=== PATIENT | female | born 1980 | race Caucasian/White ===

== ENCOUNTER 2016-07-15 08:53 | Emergency (ER) | payer BC ==
[~2016-07-15] VITALS: Ht 175.3 cm; Wt 72.1 kg
[~2016-07-15 08:53] MED LIST: Motrin PO; Percocet 5/325,Endoc PO; Zoloft PO
[2016-07-15] MEDS ORDERED: FIORICET WI1 CAPSULE PO (11:25)
[2016-07-15 11:47] VITALS: BP 97/57
== END 2016-07-15 11:48 | disposition home or self-care (01) ==
LOC: EME 08:53
DX: G43.909 Migraine, unspecified, not intractable, without status migrainosus (principal); Z88.2 Allergy status to sulfonamides; Z88.0 Allergy status to penicillin; Z88.6 Allergy status to analgesic agent
CPT/HCPCS: 99281; 99284; J1885; J2765; J7030

== ENCOUNTER 2017-01-20 22:37 | Inpatient (IN) | payer BC ==
[~2017-01-20] VITALS: Ht 175.3 cm; Wt 73.5 kg
[~2017-01-20 22:37] MED LIST changes: +FIORICET WI1 CAPSULE PO
[2017-01-20 23:21] LABS: ADD MIUA? NO; BILIRUBIN NEGATIVE; BLOOD NEGATIVE; COLOR STRAW ((YELLOW)); GLUCOSE (STRIP) NEGATIVE; KETONES NEGATIVE; LEUKOCYTES NEGATIVE; NITRITE NEGATIVE; PROTEIN (STRIP) NEGATIVE; SPECIFIC GRAVITY 1.009 (1.000-1.030); UROBILINOGEN 0.2 MG/DL (0.2-1.0)
[2017-01-20 23:43] LABS: EOSINOPHIL (%) 0.4 % (0-5); EOSINOPHIL COUNT 0.1 K/uL (0-0.3); IMMATURE GRANULOCYTE (%) 0.6 % (0.0-0.7); IMMATURE GRANULOCYTE COUNT 0.1 K/uL; INSTRUMENT ABS NEUTROPHIL CT 11.6 K/uL; LYMPHOCYTE COUNT 3.4 K/uL (1.0-2.8); MCH 28.3 PG (29.0-34.0); MCHC 32.5 G/DL (30.0-36.0); MCV 87.2 FL (83-99); MEAN PLAT.VOLUME 10.8 uM^3 (9.5-12.4); MONOCYTE (%) 6.8 % (3-12); MONOCYTE COUNT 1.1 K/uL (0-0.8); NEUTROPHIL COUNT 11.6 K/uL (1.8-6.4); PLATELET COUNT 237 K/uL (156-360); RBC DIS.WIDTH-CV 13.1 % (11.8-14.6); RBC DIS.WIDTH-SD 41.2 % (39-53); RED BLOOD COUNT 4.13 M/uL (3.80-5.20); WHITE BLOOD COUNT 16.3 K/uL (4.1-10.2)
[2017-01-21] VITALS (7 sets, daily range): BP systolic 93–112; BP diastolic 52–56
[2017-01-21 00:03] LABS: CHLORIDE 104 mEq/L (99-109); SODIUM 138 mEq/L (136-147)
[2017-01-21 00:05] LABS: GLUCOSE 96 mg/dL (70-99)
[2017-01-21 00:06] LABS: ANION GAP 9 MEQ/L (2-14)
[2017-01-21 00:08] LABS: ALKALINE PHOSPHATASE 79 IU/L (3-129)
[2017-01-21 00:09] LABS: GFR ESTIMATE (CALCULATED) > 59 mL/min/
[2017-01-21 00:10] LABS: UREA NITROGEN (BUN) 10 mg/dL (9-23)
[2017-01-21 00:12] LABS: LIPASE 6 U/L (1.0-51.0)
[2017-01-21 00:20] LABS: QUANTITATIVE HCG < 4.0 MIU/ML
[2017-01-21] MEDS ORDERED: CITALOPRAM HBR40 MG PO (02:58)
[2017-01-21] MEDS ORDERED: HYDROCODON-ACE1 EAC7 PO (08:10)
[2017-01-22 04:11] VITALS: BP 93/57
[2017-01-22 07:43] VITALS: BP 92/57
[2017-01-22 11:31] VITALS: BP 95/55
== END 2017-01-22 13:05 | disposition home or self-care (01) | DRG 337 ==
LOC: EME 22:37 → EDOF 01-21 02:12 → ENRESERV 01-21 02:19 → 2EAST 01-21 03:33
PROVIDERS: Physician Assistant
PROC: 0DNS4ZZ (ICD-10-PCS; principal; 2017-01-21)
PROC: 0DTJ4ZZ Resection of Appendix, Percutaneous Endoscopic Approach (ICD-10-PCS; principal; 2017-01-21)
DX: K35.80 Unspecified acute appendicitis (principal); K66.0 Peritoneal adhesions (postprocedural) (postinfection); F32.9 Major depressive disorder, single episode, unspecified; F41.9 Anxiety disorder, unspecified; Q89.9 Congenital malformation, unspecified; Z87.01 Personal history of pneumonia (recurrent); Z88.0 Allergy status to penicillin; Z88.2 Allergy status to sulfonamides; Z88.5 Allergy status to narcotic agent
CPT/HCPCS: 74177; 76856; 80053; 81003; 83690; 84702; 84703; 85025; 88304; 93975; 99281; 99285; J0330; J0744; J1170; J1885; J2250; J2405; J3010; J7030; J7120; S0030